=== PATIENT | male | born 1965 | race Caucasian/White ===

== ENCOUNTER 2018-08-07 16:23 | Emergency (ER) | payer SELFPAY ==
[2018-08-07] MEDS ORDERED: Nitroglycerin 0.4 MG TAB (25 Tab Bottle) ONE (16:46)
[2018-08-07 16:48] LABS: #Basophils 0.1 thou/uL (0.0-0.2); #Eosinphils 0.4 thou/uL (0.0-0.7); #Lymphocytes 2.7 thou/uL (1.20-3.40); #Monocytes 0.9 thou/uL (0.11-0.59); #Neutrophils 6.2 thou/uL (1.40-6.50); %Eosinophils 3.9 % (0.0-10.0); %Lymphocytes 26.1 % (21.0-51.0); %Monocytes 8.9 % (0.0-10.0); Hemoglobin 12.8 g/dL (14.0-18.0); Mean Corpuscular HGB CONC 33.4 g/dL (32.0-36.0); Mean Corpuscular Hemoglobin 29.2 pg (27.0-31.0); Mean Corpuscular Volume 87.3 fL (78.0-98.0); Platelet Count 276 thou/uL (130-400); RBC Distribution Width 14.2 % (11.5-14.5); White Blood Cell (WBC) Count 10.3 thou/uL (4.8-10.8)
[2018-08-07 17:03] LABS: CKMB 0.7 ng/mL (0-6.6); Troponin I Less than 0.010 ng/mL (< 0.028)
[2018-08-07 17:12] LABS: ALT (SGPT) 26 U/L (8-55); AST (SGOT) 19 U/L (5-34); Albumin 4.3 g/dL (3.5-5.0); Alkaline Phosphatase 81 U/L (40-150); Anion Gap 13 mmol/L (10-20); BUN (Urea Nitrogen) 14 mg/dL (8.4-25.7); Bilirubin, Total 0.3 mg/dL (0.2-1.2); CK (CPK) 73 U/L (30-200); Calc. Creatinine Clearance 0 mL/min (70-130); Carbon Dioxide 24 mmol/L (22-29); Chloride 105 mmol/L (98-107); Estimated GFR-MDRD 73; Globulin 3.2 g/dL (2.4-3.5); Glucose 98 mg/dL (70-105); Lipase 38 U/L (8-78); Potassium 4.4 mmol/L (3.5-5.1); Protein, Total 7.5 g/dL (6.0-8.3); Sodium 138 mmol/L (136-145)
[2018-08-07] MEDS ORDERED: Morphine 4 MG/ML Carpuject ONE (18:24)
[2018-08-07] MEDS ORDERED: Nitroglycerin 2% Ointment 1 INCH/1 GM Packet ONE (18:25)
--- NOTE | 2018-08-07 19:13 | RAD ---
PORTABLE CHEST: Date: 08-07-18 Comparison: 06-30-18 FINDINGS: The heart has returned to normal in size. Median sternotomy sutures are seen from the recent CABG. Th e lungs are clear. There is no vascular congestion, edema, or pleural effusion. IMPRESSION: No acute thoracic findings. POS: HOME
--- NOTE | 2018-08-07 19:21 | CT ---
CT ANGIO OF THE CHEST WITH CONTRAST 08/07/[address] of the chest was performed after a bolus of IV contrast for evaluation of chest pain with a slightly elevated D-dimer. The patient recently had a CABG. There is excellent opacification of the pulmonary arteries. There were no filling defects to suggest emboli. The aorta shows no sign of aneurysm or dissection. The patient's arterial graft is seen and i s patent with contrast. There is no pericardial effusion. No mediastinal mass or adenopathy of signif icance was seen. The lungs are clear. There is no acute infiltrate or effusion. Some minor pleural thickening is seen posteriorly in spots. Scans into the upper abdomen showed no abnormality within the structures scanned. The aorta remains i n normal caliber throughout. IMPRESSION: No acute thoracic findings. No evidence of pulmonary embolism. POS: HOME
== END 2018-08-07 18:51 | disposition short-term general hospital (02) ==
LOC: BURERS 16:23
DX: R07.2 Precordial pain (principal); I10 Essential (primary) hypertension; I25.10 Atherosclerotic heart disease of native coronary artery without angina pectoris; I25.2 Old myocardial infarction; Z87.891 Personal history of nicotine dependence
CPT/HCPCS: 71045; 71275; 80053; 82550; 82553; 83690; 83880; 84484; 85025; 85379; 93005; 94760; 96361; 96374; J2270

== ENCOUNTER 2021-04-01 13:48 | Emergency (ER) | payer BC | END 2021-04-01 14:21 | disposition home or self-care (01) | LOC: BURERS 13:48 | DX: J06.9 Acute upper respiratory infection, unspecified (principal); I25.10 Atherosclerotic heart disease of native coronary artery without angina pectoris; I25.2 Old myocardial infarction; I10 Essential (primary) hypertension; Z87.891 Personal history of nicotine dependence | CPT/HCPCS: 99283 ==

== ENCOUNTER 2022-11-15 23:30 | Emergency (ER) | payer BC ==
[2022-11-15] MEDS ORDERED: Dexamethasone 10 MG/ML VIAL ONE (23:57)
[2022-11-16 00:23] LABS: #Basophils 0.1 thou/uL (0.0-0.2); #Eosinphils 0.2 thou/uL (0.0-0.7); #Lymphocytes 2.6 thou/uL (1.20-3.40); #Monocytes 0.7 thou/uL (0.11-0.59); %Eosinophils 2.4 % (0.0-10.0); %Monocytes 8.4 % (0.0-10.0); %Neutrophils 58.3 % (42.0-75.0); Hemoglobin 15.3 g/dL (14.0-18.0); Mean Corpuscular HGB CONC 34.3 g/dL (32.0-36.0); Mean Corpuscular Hemoglobin 31.4 pg (27.0-31.0); Mean Corpuscular Volume 91.4 fl (78.0-98.0); Mean Platelet Volume 6.5 fL (7.4-10.4); Platelet Count 231 10x3/uL (130-400); RBC Distribution Width 12.1 % (11.5-14.5); Red Blood Cell (RBC) Count 4.89 mill/uL (4.70-6.10); White Blood Cell (WBC) Count 8.5 10x3/uL (4.8-10.8)
[2022-11-16 00:38] LABS: ALT (SGPT) 44 U/L (8-55); AST (SGOT) 25 U/L (5-34); Albumin 4.2 g/dL (3.5-5.0); Alkaline Phosphatase 74 U/L (40-110); Anion Gap 13 mmol/L (10-20); BUN (Urea Nitrogen) 11 mg/dL (8.4-25.7); Bilirubin, Total 0.3 mg/dL (0.2-1.2); Calc. Creatinine Clearance 0 mL/min (70-130); Calcium 9.2 mg/dL (7.8-10.44); Carbon Dioxide 22 mmol/L (22-29); Chloride 105 mmol/L (98-107); Estimated GFR 80; Globulin 2.8 g/dL (2.4-3.5); Glucose 97 mg/dL (70-105); Magnesium 2.3 mg/dL (1.6-2.6); Potassium 4.3 mmol/L (3.5-5.1); Sodium 136 mmol/L (136-145)
[2022-11-16] MEDS ORDERED: Lidocaine 5% Patch TD SCH (00:45)
[2022-11-16] MEDS ORDERED: Iopamidol 370 76% 100 ML VIAL ONE (12:55)
== END 2022-11-16 02:25 | disposition home or self-care (01) ==
LOC: BURERS 23:30
DX: U07.1 COVID-19 (principal); I10 Essential (primary) hypertension; I25.2 Old myocardial infarction; Z87.891 Personal history of nicotine dependence
CPT/HCPCS: 71045; 71275; 80053; 83735; 84484; 85025; 85379; 93005; J1100; Q9967